=== PATIENT | female | born 1955 | race Caucasian/White ===

== ENCOUNTER → 2019-11-19 | Outpatient (CLI) | payer MEDICARE, MEDICAID | END | disposition home or self-care (01) | LOC: LAB 12:07 | PROVIDERS: ATTEND Internal Medicine Gastroenterology | DX: Z20.828 Contact with and (suspected) exposure to other viral communicable diseases (principal) | CPT/HCPCS: C9803; U0003 ==

== ENCOUNTER 2019-11-22 08:42 | Day surgery (SDC) | payer MEDICARE, MEDICAID ==
[~2019-11-22] VITALS: Ht 157.5 cm; Wt 105.7 kg
[~2019-11-22 08:42] MED LIST: LACTATED RINGERS 1,000 ML IV SCH
[2019-11-22] MEDS ORDERED: GLYCOPYRROLATE 0.2 MG/ML 2ML VIAL ONE (10:44)
[2019-11-22] MEDS ORDERED: PROPOFOL 200MG/20ML VIAL IV ONE ×2 (10:44→10:48)
[2019-11-22] MEDS ORDERED: HYDROMORPHONE HCL/PF 2MG/ML CPJ IV PRN (11:00)
[2019-11-22] MEDS ORDERED: MEPERIDINE HCL/PF 25MG/ML CPJ IV PRN (11:00)
[2019-11-22] MEDS ORDERED: LABETALOL 5MG/ML SYR 20 MG/4 ML SYRINGE IV PRN (11:00)
[2019-11-22] MEDS ORDERED: ONDANSETRON HCL 4MG/2ML INJ IV PRN (11:00)
== END 2019-11-22 14:35 | disposition home or self-care (01) ==
LOC: OR 08:42
PROVIDERS: ATTEND Internal Medicine Gastroenterology
DX: I85.00 Esophageal varices without bleeding (principal); K74.60 Unspecified cirrhosis of liver; K29.50 Unspecified chronic gastritis without bleeding; K31.89 Other diseases of stomach and duodenum; I10 Essential (primary) hypertension; K21.9 Gastro-esophageal reflux disease without esophagitis; E03.9 Hypothyroidism, unspecified; Z79.899 Other long term (current) drug therapy; Z98.890 Other specified postprocedural states
CPT/HCPCS: 43239; 43244; 88305; 88313; 93005; J2704; J3490

== ENCOUNTER → 2020-03-19 | Outpatient (CLI) | payer MEDICARE, MEDICAID ==
[~2020-03-19] MED LIST changes: +FOLI-43 PO; +FURO40TA5 PO; -LACTATED RINGERS 1,000 ML IV SCH; +LEVO100T9 PO; +LORA10TA7 PO; +OMEP20TA2 PO; +OXYB5TAB17 PO; +SPIR50TA5 PO
== END | disposition home or self-care (01) ==
LOC: LAB 12:35
PROVIDERS: ATTEND Internal Medicine Gastroenterology
DX: Z01.812 Encounter for preprocedural laboratory examination (principal); Z20.822 Contact with and (suspected) exposure to COVID-19
CPT/HCPCS: 87426

== ENCOUNTER → 2020-03-20 | Day surgery (SDC) | payer MEDICARE, MEDICAID ==
[~2020-03-20] VITALS: Ht 157.5 cm; Wt 93.9 kg
[~2020-03-20] MED LIST changes: +ACETAMINOPHEN 500MG TABLET PO NR; +SODIUM CHLORIDE 0.9% 1,000 ML IV SCH
[2020-03-20 10:06] LABS: HEMATOCRIT. 35.8 % (36.0-48.0); HEMOGLOBIN. 12.2 g/dL (12.0-16.0); MEAN CORPUSCULAR HEMOGLOBIN 38.2 pg (28.0-32.0); MEAN CORPUSCULAR VOLUME 111.7 fL (81.0-99.0); MEAN PLATELET VOLUME 10.3 fl (7.4-10.4); PLATELET 102 x1000/uL (130-400); RED BLOOD CELL COUNT 3.21 mill/uL (4.2-5.4); RED CELL DISTRIBUTION WIDTH 14.3 % (11.6-14.6)
[2020-03-20 10:16] LABS: INR 1.6; PARTIAL THROMBOPLASTIN TIME 32.1 sec (23.4-31.0); PROTHROMBIN TIME 16.2 sec (9.6-11.0)
[2020-03-20 10:19] LABS: CHLORIDE 108 mEq/L (98-107)
[2020-03-20 12:55] LABS: PLATELET ESTIMATE SLIGHTLY DECREASED
== END | disposition home or self-care (01) ==
LOC: OR 08:57
PROVIDERS: ATTEND Internal Medicine Gastroenterology
DX: I85.00 Esophageal varices without bleeding (principal); K74.60 Unspecified cirrhosis of liver; K76.6 Portal hypertension; K29.60 Other gastritis without bleeding; K31.89 Other diseases of stomach and duodenum; B96.81 Helicobacter pylori [H. pylori] as the cause of diseases classified elsewhere; K21.9 Gastro-esophageal reflux disease without esophagitis; E03.9 Hypothyroidism, unspecified; Z79.899 Other long term (current) drug therapy; Z98.890 Other specified postprocedural states
CPT/HCPCS: 36415; 43239; 80048; 85025; 85610; 85730; 88305; 88313; 93005; J2250; J2704; J3010; J3490